=== PATIENT | female | born 1985 | race Caucasian/White ===

== ENCOUNTER 2023-12-24 21:33 | Emergency (ER) | payer BC ==
[~2023-12-24] VITALS: Ht 165.1 cm; Wt 74.8 kg
[2023-12-24 21:58] VITALS: PULSE 82; RESP 18; TEMP 98.3
[2023-12-24] MEDS ORDERED: IBUPROFEN200 MG PO (22:19)
[2023-12-24] MEDS ORDERED: TYLENOL325 MG PO (22:19)
[2023-12-24 23:00] VITALS: BP 149/96; PULSE 82; RESP 18; TEMP 98.3; O2SAT 98
== END 2023-12-24 23:00 | disposition home or self-care (01) ==
LOC: FSED 21:38
DX: S30.1XXA Contusion of abdominal wall, initial encounter (principal); W55.12XA Struck by horse, initial encounter; Y92.89 Other specified places as the place of occurrence of the external cause
CPT/HCPCS: 74176; 99283